=== PATIENT | male | born 2000 | race Caucasian/White ===

== ENCOUNTER 2024-06-18 16:46 | Emergency (ER) | payer SELFPAY ==
[~2024-06-18] VITALS: Ht 172.7 cm; Wt 70.0 kg
[2024-06-18 16:50] VITALS: O2SAT 98
[2024-06-18] MEDS: TETANUS, DIPHTHERIA, PERTUSSIS VAC/PF 0.5ML (>10YR OLD) IM ONE (17:30)
[2024-06-18] MEDS: ONDANSETRON 4MG ODT PO ONE (17:30)
[2024-06-18] MEDS: HYDROCODONE/ACETAMINOPHEN 5/325MG TABLET PO ONE (17:30)
[2024-06-18] MEDS: BACITRACIN ZINC OINT UDPKT TOP ONE (17:30)
[2024-06-18] MEDS ORDERED: CEPH500C2 MT (17:36)
[2024-06-18] MEDS: LIDOCAINE HCL/PF 1% 10 MG/ML 5ML VIAL INFIL ONE (17:45)
[2024-06-18 18:23] VITALS: BP 148/84; PULSE 72; RESP 16; TEMP 36.78072; O2SAT 98
== END 2024-06-18 18:31 | disposition home or self-care (01) ==
LOC: ER 16:46
DX: S62.633A Displaced fracture of distal phalanx of left middle finger, initial encounter for closed fracture (principal); X58.XXXA Exposure to other specified factors, initial encounter; Y93.89 Activity, other specified; Y92.89 Other specified places as the place of occurrence of the external cause; Y99.8 Other external cause status
CPT/HCPCS: 73140; 90715; 29130; 90471; 99284; Q0162; J3490; Z7610 ×3